=== PATIENT | female | born 1975 | race Caucasian/White ===

== ENCOUNTER 2017-02-01 20:29 | Emergency (ER) | payer OTHER ==
[2017-02-01] MEDS ORDERED: Sodium Chloride 0.9% 10 ML Syringe FLUSH PRN (21:39)
[2017-02-01] MEDS ORDERED: fentaNYL 100 MCG/2 ML SDV IVPUSH ONE (21:40)
[2017-02-01] MEDS ORDERED: Sodium Chloride 0.9% 1,000 ML IV SCH (21:45)
--- NOTE | 2017-02-01 22:02 | EDM.PDOC ---
ED HPI GENERAL MEDICAL PROBLEM - General Chief Complaint: Abdominal Pain Stated Complaint: R ABDOMINAL PAIN Time Seen by Provider: 02/01/17 21:27 Source of Information: Reports: Patient, Old Records, RN Notes Reviewed History Limitations: Reports: No Limitations - History of Present Illness INITIAL COMMENTS - FREE TEXT/NARRATIVE: here with Chief complaint Abdominal pain History of present illness 41-year-old female with onset of loss of appetite generalized feeling of "being sick" yesterday about noon then started developing lower right abdominal pain. However she was able to get to sleep except well had no nausea or vomiting was better in the morning, but over the course of the day developed left-sided abdominal pain. History of gastric bypass 2003 but developed bowel obstruction in August and December 2015, both times requiring surgery, and complicated by intra-abdominal infection requiring open ciliotomy and delayed closure of abdominal wounds with repeat operation. Appetite was okay today but decreased this evening. She's had no nausea, no vomiting had normal bowel movement this morning, usually has a bowel movement twice a day. Does not feel bloated and is passing gas rectally. Has not had her appendix out, did have part of her small bowel resected, did have cholecystectomy. Some radiation of pain into the back. Pain is aggravated by breathing moving walking feels better at rest. 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 Pain Score (Numeric/FACES): 7 - Related Data Allergies Allergy/AdvReac Type Severity Reaction Status Date / Time codeine Allergy Cannot Verified 02/01/17 20:56 Remember methylparaben Allergy Cannot Verified 02/01/17 20:56 Remember nalbuphine Allergy Cannot Verified 02/01/17 20:56 Remember nalbuphine HCl [From Nubain] Allergy Cannot Verified 02/01/17 20:56 Remember oxycodone Allergy Chest Pain Verified 02/01/17 20:56 propylpara Allergy Cannot Uncoded 02/01/17 20:56 Remember Home Meds: Home Meds Cholecalciferol (Vitamin D3) [Vitamin D3] 2,000 units PO DAILY 09/11/15 [History ] Cyanocobalamin (Vitamin B-12) [B-12] 2,500 mcg PO DAILY 09/11/15 [History] Fexofenadine [Radha] 180 mg PO DAILY 09/11/15 [History] Iron,Carbonyl/Ascorbic Acid [Vitron-C Tablet] 1 tab PO DAILY 09/11/15 [History] Multivitamin with Minerals [Multiple Vitamin] 1 tab PO DAILY 09/11/15 [History] Norgestimate-Ethinyl Estradiol [Ortho-Cyclen 28 Tablet] 1 tab PO BEDTIME [History] Acetaminophen [Tylenol Extra Strength] 1,000 mg PO QID PRN 12/29/15 [History] Lactobacillus Acidophilus [Probiotic] 1 each PO DAILY 01/09/16 [History] Amylase/Lipase/Protease [Aurea BATISTA 24,000 Unit] 1 cap PO TID 02/01/17 [History] Diphenoxylate HCl/Atropine [Diphenoxylate-Atrop 2.5-0.025] 1 tab PO DAILY [History] Furosemide [Lasix] 20 mg PO ASDIRECTED PRN 02/01/17 [History] Thiamine HCl [Vitamin B-1] 250 mg PO DAILY 02/01/17 [History] Hydrocodone/Acetaminophen [Hydrocodon-Acetaminophen 5-325] 1 - 2 tab PO Q4H PRN #10 tablet 02/02/17 [Rx] Past Medical History HEENT History: Reports: Allergic Rhinitis Gastrointestinal History: Reports: Bowel Obstruction 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: Other OB/BYN History: abnormal PAP Musculoskeletal History: Reports: Fracture Other Musculoskeletal History: fractured knee cap Neurological History: Reports: Headaches, Chronic, Vertigo Psychiatric History: Reports: Anxiety, Depression Other Psychiatric History: insomnia Endocrine/Metabolic History: Reports: Obesity/BMI 30+ Hematologic History: Reports: B12 Deficiency - Infectious Disease History Infectious Disease History: Reports: Chicken Pox, Shingles - Past Surgical History HEENT Surgical History: Reports: Oral Surgery, Tonsillectomy GI Surgical History: Reports: Bariatric Procedure, Cholecystectomy, Colon, EGD, Esophageal Dilatation, Small Bowel Female Surgical History: Reports: Cervical Cryotherapy Social & Family History - Family History Family Medical History: Noncontributory Cardiac: Reports: Stent - Tobacco Use Smoking Status *Q: Never Smoker Second Hand Smoke Exposure: No - Caffeine Use Caffeine Use: Reports: Coffee, Soda - Alcohol Use Days Per Week of Alcohol Use: 0 - Recreational Drug Use Recreational Drug Use: No ED ROS GENERAL - Review of Systems Review Of Systems: See Below Constitutional: Reports: Malaise, Decreased Appetite. Denies: Fever, Chills, Diaphoresis, Weight Loss, Weight Gain HEENT: Reports: No Symptoms Respiratory: Reports: No Symptoms (but deep breath aggravates the abdominal pain ) Cardiovascular: Reports: No Symptoms GI/Abdominal: Reports: Abdominal Pain, Decreased Appetite, Flatus. Denies: Bloody Stool, Constipation, Diarrhea, Difficulty Swallowing, Distension, Melena , Nausea, Vomiting : Reports: No Symptoms Musculoskeletal: Reports: No Symptoms Skin: Reports: No Symptoms Neurological: Reports: No Symptoms Hematologic/Lymphatic: Reports: No Symptoms Immunologic: Reports: No Symptoms ED EXAM, GI/ABD - Physical Exam Exam: See Below Exam Limited By: No Limitations General Appearance: Alert, Moderate Distress, Other (mild elevation systolic blood pressure and pulse, afebrile) Eyes: Bilateral: Normal Appearance, EOMI Nose: Normal Inspection Throat/Mouth: Normal Inspection, Normal Oropharynx Head: Atraumatic, Normocephalic Neck: Normal Inspection, Supple Respiratory/Chest: No Respiratory Distress, Lungs Clear, Normal Breath Sounds, No Accessory Muscle Use Cardiovascular: Normal Peripheral Pulses, Regular Rate, Rhythm GI/Abdominal Exam: Soft, No Distention, Tender (right lower quadrant without guarding), Abnormal Bowel Sounds (quieter than usual). No: Guarding, Rigid, Rebound Back Exam: Normal Inspection Extremities: Normal Inspection, Normal Capillary Refill Neurological: Alert, Oriented, Normal Cognition, No Motor/Sensory Deficits Psychiatric: Normal Affect, Normal Mood Skin Exam: Warm, Dry, Intact, Normal Color, No Rash Lymphatic: No Adenopathy Course - Vital Signs Last Recorded V/S: Last Vital Signs Temp 36.7 C 02/01/17 20:42 Pulse 101 H 02/01/17 23:04 Resp 16 02/01/17 20:42 BP 113/62 02/01/17 23:04 Pulse Ox 97 02/01/17 23:04 - Orders/Labs/Meds Orders: Active Orders 24 hr Category Date Time Status Peripheral IV Care [RC] . DIRECTED Care 02/01/17 21:39 Active Abdomen 2V AP Flat Upright [CR] Stat Exams 02/01/17 21:57 Taken Abdomen Pelvis w Cont [CT] Stat Exams 02/01/17 22:45 Taken Sodium Chloride 0.9% [Normal Saline] 1,000 ml Med 02/01/17 21:45 Active IV ASDIRECTED Sodium Chloride 0.9% [Saline Flush] Med 02/01/17 21:39 Active 10 ml FLUSH ASDIRECTED PRN Peripheral IV Insertion Adult [OM.PC] Routine Oth 02/01/17 21:39 Ordered Medication Orders Sodium Chloride (Normal Saline) 1,000 mls @ 250 mls/hr IV ASDIRECTED [place] Last Admin: 02/01/17 23:19 Dose: 250 mls/hr Sodium Chloride (Saline Flush) 10 ml FLUSH ASDIRECTED PRN PRN Reason: Keep Vein Open Last Admin: 02/01/17 22:51 Dose: 10 ml Labs: Laboratory Tests 02/01/17 02/01/17 02/01/17 Range/Units 21:49 21:49 21:49 WBC 14.0 H (4.5-11.0) K/uL RBC 4.45 (3.30-5.50) M/uL Hgb 12.4 (12.0-15.0) g/dL Hct 38.7 (36.0-48.0) % MCV 87 (80-98) fL MCH 28 (27-31) pg MCHC 32 (32-36) % Plt Count 342 (150-400) K/uL Sodium 139 L (140-148) mmol/L Potassium 4.0 (3.6-5.2) mmol/L Chloride 105 (100-108) mmol/L Carbon Dioxide 26 (21-32) mmol/L Anion Gap 12.0 (5.0-14.0) mmol/L BUN 10 D (7-18) mg/dL Creatinine 0.8 (0.6-1.0) mg/dL Est Cr Clr Drug Dosing 88.18 mL/min Estimated GFR (MDRD) > 60 (>60) Glucose 100 (74-106) mg/dL Lactic Acid 1.1 (0.4-2.0) mmol/L Calcium 8.8 (8.5-10.1) mg/dL Total Bilirubin 0.3 (0.2-1.0) mg/dL AST 19 D (15-37) U/L ALT 30 D (12-78) U/L Alkaline Phosphatase 46 (46-116) U/L Total Protein 7.1 (6.4-8.2) g/dL Albumin 3.0 L (3.4-5.0) g/dL Globulin 4.1 H (2.3-3.5) g/dL Albumin/Globulin Ratio 0.7 L (1.2-2.2) Lipase 107 (73-393) U/L Meds: Medications Generic Name Dose Route Start Last Admin Trade Name Freq PRN Reason Stop Dose Admin Sodium Chloride 1,000 mls @ 250 mls/hr 02/01/17 21:45 02/01/17 23:19 Normal Saline IV 250 mls/hr ASDIRECTED [place] Administration Sodium Chloride 10 ml 02/01/17 21:39 02/01/17 22:51 Saline Flush FLUSH 10 ml ASDIRECTED PRN Administration Keep Vein Open Discontinued Medications Generic Name Dose Route Start Last Admin Trade Name Freq PRN Reason Stop Dose Admin Diphenhydramine HCl 25 mg 02/01/17 23:18 02/01/17 23:39 Benadryl IVPUSH 02/01/17 23:19 25 mg ONETIME ONE Administration Fentanyl 100 mcg 02/01/17 21:40 02/01/17 22:50 Sublimaze IVPUSH 02/01/17 21:41 100 mcg ONETIME ONE Administration Sodium Chloride 84 mls @ 4.4 mls/sec 02/01/17 22:56 02/01/17 23:10 Normal Saline IV 02/01/17 22:57 4.4 mls/sec ASDIRECTED STA Administration Iopamidol 144 ml 02/01/17 22:55 02/01/17 23:09 Isovue-300 (61%) IV 02/01/17 22:56 150 ml . DIRECTED STA Administration - Re-Assessments/Exams Free Text/Narrative Re-Assessment/Exam: 02/01/17 22:44 41-year-old female with history of gastric bypass, bowel obstruction requiring surgery presenting with over 24 hours of abdominal pain now with decreased appetite. No nausea or vomiting and does not appear to be obstruction. elevated white cell count and right lower quadrant tenderness Discussed with her physician CT scan abdomen pelvis 02/02/17 00:45 CT scan negative for appendicitis Does have delayed transit at the anastomotic site Discussed with patient disposition She elected for discharge home fluid diet only until pain improves Prescribed 10 tablets hydrocodone which she is taking previously Departure - Departure Time of Disposition: 00:45 Disposition: Home, Self-Care 01 Condition: Good Clinical Impression: Intestinal stenosis - Discharge Information Referrals: Indigo Flores MD [Primary Care Provider] - Forms: ED Department Discharge Additional Instructions: delayed intestinal transit or movement of stool through the intestines because of narrowing (stenosis) at the site of the surgery. liquid diet only until your pain has subsided Hydrocodone as needed for pain Contact Dr. Crabtree for follow-up appointment within the week Return to emergency if severe pain, repeated vomiting, fever, abdominal distention or otherwise worsening symptoms - My Orders Last 24 Hours: My Active Orders 02/01/17 21:39 Peripheral IV Care [RC] . DIRECTED Sodium Chloride 0.9% [Saline Flush] 10 ml FLUSH ASDIRECTED PRN Peripheral IV Insertion Adult [OM.PC] Routine 02/01/17 21:45 Sodium Chloride 0.9% [Normal Saline] 1,000 ml IV ASDIRECTED 02/01/17 21:57 Abdomen 2V AP Flat Upright [CR] Stat 02/01/17 22:45 Abdomen Pelvis w Cont [CT] Stat - Assessment/Plan Last 24 Hours: My Active Orders 02/01/17 21:39 Peripheral IV Care [RC] . DIRECTED Sodium Chloride 0.9% [Saline Flush] 10 ml FLUSH ASDIRECTED PRN Peripheral IV Insertion Adult [OM.PC] Routine 02/01/17 21:45 Sodium Chloride 0.9% [Normal Saline] 1,000 ml IV ASDIRECTED 02/01/17 21:57 Abdomen 2V AP Flat Upright [CR] Stat 02/01/17 22:45 Abdomen Pelvis w Cont [CT] Stat
[2017-02-01] MEDS ORDERED: Iopamidol 612 MG/ML 150 ML Bottle IV STA (22:55)
[2017-02-01] MEDS ORDERED: diphenhydrAMINE 50 MG/ML SDV IVPUSH ONE (23:18)
[2017-02-02 00:57] VITALS: BP 107/53
--- NOTE | 2017-02-02 09:00 | CR ---
Abdomen 2V AP Flat Upright HISTORY: abdominal pain, history of bypass, obstruction FINDINGS: There is mild gaseous prominence of small bowel loops and colon. Appearance is nonspecific. Early gas troenteritis or ileus could be considered. No obstruction or free air is identified. No soft tissue m ass, organomegaly, or abnormal calcifications are seen. Bony structures are unremarkable. Surgical cl ips right upper quadrant suggest prior cholecystectomy. There are multiple staple lines left upper qu adrant of the abdomen. IMPRESSION: Mild nonspecific gaseous prominence of small bowel loops and colon. Postcholecystectomy changes. Mult iple staple lines are noted left upper quadrant of the abdomen suggesting prior gastric bypass. Other olmstead nonspecific abdomen.
== END 2017-02-02 00:56 | disposition home or self-care (01) ==
LOC: JP.ED 20:29
DX: K56.609 Unspecified intestinal obstruction, unspecified as to partial versus complete obstruction (principal); E66.9 Obesity, unspecified; Z88.5 Allergy status to narcotic agent; Z88.8 Allergy status to other drugs, medicaments and biological substances; Z79.899 Other long term (current) drug therapy
CPT/HCPCS: 36415; 74020; 74177; 80053; 83605; 83690; 85027; 96361; 96374; 96375; 99285; J1200; J3010; J7030; J7040; J7050

== ENCOUNTER 2017-02-03 07:45 | Inpatient (IN) | payer OTHER ==
[~2017-02-03 07:45] MED LIST: Acetaminophen 500 MG Tab PO ONE; Celecoxib 200 MG Cap PO ONE; Scopolamine 1.5 MG Transdermal Patch TOP SCH
[2017-02-03] MEDS: fentaNYL 25 MCG/HR Transdermal Patch TRDERM SCH (08:15)
[2017-02-03] MEDS ORDERED: Bupivacaine 0.5%/EPINEPHrine 1:200,000 50 ML MDV ONE (08:16)
[2017-02-03] MEDS ORDERED: cefOXitin 2 GM in Sodium Chloride 0.9% 50 ML IV ONE (08:30)
[2017-02-03] MEDS ORDERED: Naloxone 0.4 MG/ML SDV IVPUSH PRN (08:31)
[2017-02-03] MEDS ORDERED: HYDROmorphone/Normal Saline 15 MG/30 ML PCA IV PRN (08:31)
[2017-02-03] MEDS ORDERED: Naloxone 0.4 MG/ML SDV IV PRN (08:37)
[2017-02-03] MEDS: Dextrose 5%-Lactated Ringers 1,000 ML IV SCH ×4 (08:55→22:32)
[2017-02-03] MEDS ORDERED: Succinylcholine 200 MG/10 ML MDV ONE (09:08)
[2017-02-03] MEDS ORDERED: Propofol 200 MG/20 ML SDV ONE (09:08)
[2017-02-03] MEDS ORDERED: Neostigmine Methylsulfate 1 MG/ML 5 ML Syringe ONE (09:08)
[2017-02-03] MEDS ORDERED: Dexamethasone 4 MG/ML SDV ONE (09:08)
[2017-02-03] MEDS ORDERED: Ondansetron 4 MG/2 ML SDV ONE (09:08)
[2017-02-03] MEDS ORDERED: Rocuronium 50 MG/5 ML Vial ONE (09:08)
[2017-02-03] MEDS ORDERED: Glycopyrrolate 0.2 MG/ML 5 ML MDV ONE (09:08)
[2017-02-03] MEDS ORDERED: diphenhydrAMINE 50 MG/ML SDV ONE (11:12)
[2017-02-03] MEDS ORDERED: Meropenem 500 MG SDV ONE (11:13)
[2017-02-03] MEDS ORDERED: Ondansetron 4 MG/2 ML SDV IVPUSH ONE (13:00)
[2017-02-03] MEDS ORDERED: Ondansetron 4 MG/2 ML SDV IVPUSH PRN (13:55)
[2017-02-03] MEDS: FENTANYL PATCH CHECK TOP SCH ×2 (13:56→20:06)
[2017-02-03] MEDS: SCOPOLAMINE PATCH CHECK TOP SCH (13:57)
[2017-02-03] MEDS ORDERED: Metoclopramide 10 MG/2 ML SDV IVPUSH PRN (15:00)
[2017-02-03] MEDS ORDERED: Labetalol 20 MG/4 ML Syringe IVPUSH PRN (15:00)
[2017-02-03] MEDS ORDERED: hydrOXYzine HCl 100 MG/2 ML SDV IM PRN (15:00)
[2017-02-03] MEDS ORDERED: diphenhydrAMINE 50 MG/ML SDV IVPUSH PRN (15:00)
[2017-02-03] MEDS ORDERED: Pantoprazole 40 MG Vial IVPUSH SCH (16:00)
[2017-02-03] MEDS: Acetaminophen Soln 650 MG/20.3 ML UD Cup PO SCH ×2 (16:06→21:31)
[2017-02-03] MEDS: MVI, Adult with Vitamin K 10 ML, Thiamine 200 MG, Chromium/Copper/Mang/Selen/Zn 1 ML in... IV SCH ×4 (16:15)
[2017-02-03] MEDS: cefOXitin 2 GM in Sodium Chloride 0.9% 50 ML IV SCH ×2 (16:15→22:32)
[2017-02-03] MEDS: Heparin Sodium 5,000 Units/ML Vial SUBCUT SCH (17:22)
[2017-02-04] MEDS ORDERED: Iohexol 647 MG/ML 50 ML SDV PO STA (03:49)
[2017-02-04] MEDS: Dextrose 5%-Lactated Ringers 1,000 ML IV SCH (04:43)
[2017-02-04] MEDS: Acetaminophen Soln 650 MG/20.3 ML UD Cup PO SCH (04:46)
[2017-02-04] MEDS: cefOXitin 2 GM in Sodium Chloride 0.9% 50 ML IV SCH (04:49)
[2017-02-04] MEDS: Heparin Sodium 5,000 Units/ML Vial SUBCUT SCH ×2 (05:00→17:43)
[2017-02-04] MEDS: Celecoxib 200 MG Cap PO SCH (08:48)
[2017-02-04] MEDS: FENTANYL PATCH CHECK TOP SCH (08:48)
[2017-02-04] MEDS: SCOPOLAMINE PATCH CHECK TOP SCH (08:49)
--- NOTE | 2017-02-04 09:05 | CR ---
UGI wo KUB HISTORY: eval R -Y GBP FINDINGS: Limited upper GI series was obtained without fluoroscopy. Water-soluble contrast was admini stered orally. Immediate along with 15, 30, and 75 minute delayed images were obtained. Small gastric pouch is demonstrated. Contrast passes readily through the gastrojejunostomy into loops of jejunum. No obstruction is identified at the gastrojejunostomy. There is no contrast extravasation. On the delayed images the Shaji limb is dilated suggesting obstruction at the jejunojejunostomy. Recom mend clinical correlation. Midline skin luis are noted. IMPRESSION: Possible obstruction at the distal jejunojejunostomy.
[2017-02-04] MEDS: Acetaminophen Soln 650 MG/20.3 ML UD Cup PO PRN ×2 (09:56→18:26)
[2017-02-04] MEDS ORDERED: Nystatin Susp 100,000 Unit/ML 5 ML UD Cup PO SCH (10:00)
[2017-02-04] MEDS: MVI, Adult with Vitamin K 10 ML, Thiamine 200 MG, Chromium/Copper/Mang/Selen/Zn 1 ML in... IV SCH ×4 (11:36)
--- NOTE | 2017-02-04 11:58 | PN ---
DATE OF SERVICE: 02/04/2017 SUBJECTIVE: Lety is a 41-year-old female who is postop day #1. She states her pain is controlled. She has been up ambulating. Denies any questions or concerns. OBJECTIVE: GENERAL: Lety Toscano is a 41-year-old female. VITAL SIGNS: TPR 98.5, 76, 16. Blood pressure 103/52. HEENT: Negative. NECK: Supple. HEART: Regular rate and rhythm. LUNGS: Clear. ABDOMEN: Dressing dry and intact. Abdominal binder is on. EXTREMITIES: Without peripheral edema. SCDs are on. ASSESSMENT: Laparotomy for partial small bowel obstruction and small bowel resection. Date of surgery, 02/04/2017. PLAN: 1. Step III gastric bypass diet. 2. Decrease IV to 100 mL/h. 3. 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 4. Discontinue continuous pulse ox. 5. Ciales 5/325 mg 1 to 2 p.r.n. pain. 6. Discontinue scheduled Tylenol. 7. Good pulmonary toilet encouraged. 8. We will evaluate p.r.n. or in a.m. Kayleen Lott PA-C /[id number]
[2017-02-04] MEDS: Acetaminophen/HYDROcodone 325-5 MG Tab PO PRN ×2 (14:18→21:56)
[2017-02-04] MEDS ORDERED: Ondansetron 4 MG Tab.DIS PO PRN (14:31)
[2017-02-04] MEDS ORDERED: Cyclobenzaprine 10 MG Tab PO PRN (17:31)
[2017-02-04] MEDS ORDERED: Magnesium Hydroxide 400 MG/5 ML Susp 30 ML Cup PO ONE (18:45)
[2017-02-04] MEDS ORDERED: Bisacodyl 5 MG Tab PO ONE ×2 (19:45)
[2017-02-05] MEDS: Acetaminophen/HYDROcodone 325-5 MG Tab PO PRN ×2 (01:46→22:55)
[2017-02-05] MEDS: FENTANYL PATCH CHECK TOP SCH ×3 (02:50→21:30)
[2017-02-05] MEDS: Bisacodyl 5 MG Tab PO SCH ×3 (03:38→21:30)
[2017-02-05] MEDS: Heparin Sodium 5,000 Units/ML Vial SUBCUT SCH ×2 (05:54→18:43)
[2017-02-05] MEDS: Acetaminophen Soln 650 MG/20.3 ML UD Cup PO PRN ×3 (07:24→18:43)
[2017-02-05] MEDS: Celecoxib 200 MG Cap PO SCH (07:26)
[2017-02-05] MEDS ORDERED: Cyanocobalamin (Vitamin B12) 1,000 MCG/ML SDV IM ONE (09:00)
[2017-02-05] MEDS: SCOPOLAMINE PATCH CHECK TOP SCH (09:33)
--- NOTE | 2017-02-05 17:24 | PN ---
DATE OF SERVICE: 02/05/2017 The patient has been afebrile with stable vital signs. She is still fairly uncomfortable, but has not moved her bowels as of yet. Moving a little bit of gas. She looks too uncomfortable at this point to discharge home. We will give her MiraLAX 119 g today along with the scheduled Dulcolax tablets 10 mg q.8 hours and she will likely be ready for discharge home tomorrow. Yohan Crabtree MD /[id number]
[2017-02-06] MEDS: Bisacodyl 5 MG Tab PO SCH (03:31)
[2017-02-06] MEDS: Acetaminophen Soln 650 MG/20.3 ML UD Cup PO PRN (06:10)
[2017-02-06] MEDS: Heparin Sodium 5,000 Units/ML Vial SUBCUT SCH (06:11)
[2017-02-06] MEDS: Celecoxib 200 MG Cap PO SCH (08:25)
[2017-02-06] MEDS: fentaNYL 25 MCG/HR Transdermal Patch TRDERM SCH (08:25)
[2017-02-06] MEDS: FENTANYL PATCH CHECK TOP SCH (08:42)
--- NOTE | 2017-02-06 08:58 | DISCH ---
ADMISSION DIAGNOSES: Small bowel obstruction, status post Shaji-en-Y gastric bypass surgery, unspecified surgical malabsorption, B12 deficiency, and diarrhea due to malabsorption. 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 Date of surgery 02/03/2017. HISTORY: Lety Toscano is a 41-year-old female who presented to the emergency room with abdominal pain on 02/01/2017. The abdominal pain has been pretty chronic along with chronic diarrhea. After preoperative evaluation and discussion of possible risks and possible complications, she wished to proceed with surgical procedure. HOSPITAL COURSE: Surgery was on 02/03/2017. She had no operative complications. On postop day #1, she was changed to oral pain medication and started on a bariatric diet. On postop day #2, she was given some bowel stimulation, and she did have a bowel movement. On postop day #3, she was ready to be discharged to home. Activity good, vital signs stable, and pain was well managed. PHYSICAL EXAMINATION: GENERAL: Lety Toscano is a 41-year-old female. VITAL SIGNS: Height is 5 feet 6 inches. Weight is 208 pounds. TPR is 99.5, 104, 16, and blood pressure 117/61. HEENT: Negative. NECK: Supple. HEART: Regular rate and rhythm. LUNGS: Clear. ABDOMEN: [place] intact. She has a midline JAIMIE drain, draining a light red drainage, scant amounts. Abdominal binder has been on. EXTREMITIES: Without peripheral edema. DISPOSITION: Discharged to home. CONDITION: The patient is stable and improving. FOLLOWUP APPOINTMENT: With Kayleen Lott PA-C, on 02/14/2017 at 10:15 a.m. DISCHARGE MEDICATIONS: Home medication; [place] 5/325 mg 1 to 2 every 4 hours p.r.n. pain, #40; Celebrex 200 mg p.o. daily, #14; fentanyl patch 25 mcg was replaced on day of discharge, 02/06/2017, she can take it off on 02/10/2017; Zofran ODT 4 mg q.4 hours p.r.n. pain, #30. To resume home medications of vitamin D3 5000 international units twice daily, vitamin B12 5000 mcg oral daily, Radha 180 mg oral daily, Vitron-C one tablet twice daily, lactobacillus one each daily, magnesium 400 mg oral daily, melatonin 10 mg oral at bedtime, multivitamin one tablet daily, Ortho-Cyclen one tablet at bedtime, and thiamine 250 mg oral daily. Discontinue taking the Creon, the Lomotil, and the Lasix unless diarrhea returns. DISCHARGE DIET: Step-4 gastric bypass diet. Drink 8 to 10 glasses of water a day. ACTIVITY: After discharge; no lifting greater than 10 pounds for 6 weeks[address]riving, do not drive while on pain medication. Shower/bathing, may shower. DISCHARGE INSTRUCTIONS: Notify provider if any fever, increased pain, swelling, redness, drainage, nausea, or vomiting. Wound incision care; keep site clean and dry. Wear abdominal binder for 6 weeks and then as tolerated. Use incentive spirometer 10 times every hour while awake and to strip, empty, measure, and record JAIMIE drain 4 times a day. sample preparation supervisor Senna Plus stool softener and stimulant, take 2 at bedtime as needed for constipation.
[2017-02-06] MEDS: Acetaminophen/HYDROcodone 325-5 MG Tab PO PRN (10:43)
[2017-02-06 11:07] VITALS: BP 131/79
--- NOTE | 2017-02-09 14:27 | OR ---
DATE OF PROCEDURE: 02/03/2017 PREOPERATIVE DIAGNOSIS: Partial small bowel obstruction, near previous small bowel anastomosis felt likely to be related to chronic intussusception. POSTOPERATIVE DIAGNOSES: 1. Partial small bowel obstruction and previous small bowel anastomosis secondary to chronic intussusception. 2. 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 3. Extensive intraabdominal adhesions. OPERATIVE PROCEDURES: Exploratory laparotomy with: 1. Small bowel resection (23054). 2. Division of Shaji limb as it entered the jejunojejunostomy at the point of stricturing with secondary separate enteroenterostomy to restore Shaji-en-Y anatomy (09827). 3. Placement of Interceed mesh to limit recurrent adhesion formation by displacing pelvic and abdominal bazzi from overlying viscera ([id number]). ANESTHESIA: General. GENERAL COUNSEL: Kayleen Lott PA-C and MARY Olivares. INDICATION FOR PROCEDURE: Presented with chronic abdominal pain, particularly in the postprandial period as a recent CT scan showed partial obstruction pattern with her being quite a bit in the way of small bowel distention primarily with Shaji limb above her previous anastomosis. Given the degree of distention, plan will be to proceed with an open laparotomy and resection of bowel and/or lysis of adhesions as indicated. Potential risks including bleeding and infection leaks from various GI tract closures, possibility of recurrent bowel obstruction over time were reviewed, and the patient wishes to proceed. DETAILS OF PROCEDURE: The patient was taken to the operating room and placed in a supine position. After general endotracheal anesthesia was induced, a Khan catheter was inserted and the abdomen was prepped and draped. A midline incision from the area roughly handsbreadths below the umbilicus down to the level of the umbilicus was made and carried down through the skin and subcutaneous tissue, and the intraperitoneal cavity. There was quite a bit in the way of adhesions between the small bowel, transverse colon, and overlying abdominal wall and omentum. These were taken down and at that point on general exploration revealed a markedly dilated to previous anastomosis where there had been a jejunojejunostomy within the Shaji limb. This appeared to likely be related to the intussusception. The area of proximal to this was quite reddened and edematous. This area appeared to be best treated by means of resection. The patient had a 2nd area of stricturing where the small bowel at the level of the Shaji limb was entered in a formal Shaji-en-Y jejunojejunostomy. This was chronically angulated and somewhat narrowed and likely partially obstructed there as well. Apart from that, no additional specific abnormalities were noted. At this point, the area of the intussusception was divided proximally and distally with REGAN ghotra loads, the bowel was then aligned adjacent to it. At the beginning at the divided ends and single internal firing of the REGAN ghotra load was then accomplished and the common opening closed off with a purple load. The angles anastomosis and mesenteric defect were then approximated with some 3-0 Vicryl stitch. At that point, the Shaji limb was detached to the point where it entered the Shaji-en-Y jejunojejunostomy. The patient has had quite a bit in the way of chronic diarrhea or loose stools related to relatively short common limb. This was measured at 200 cm presently and the wound was such that the common limb now would be 450 cm proximal to the ileocecal valve. This was countered back and the end of the Shaji limb was then implanted with small bowel at that level with a [id number] enteroenterostomy once again with internal firing of the ghotra loads and common opening closed transversely with the same stapler. Angle was anastomosed with mesenteric defect with likewise approximated with some 3-0 Vicryl stitch. The anastomoses as well as mesenteric defects were then reinforced with some fibrin sealant. In an attempt to limit recurrent adhesion formation, Interceed mesh was placed from the beginning of the pelvis and extending upward underneath the abdominal wall incisional hernia to displace the small bowel and away from those surfaces to limit recurrent adhesion formation. At that point, the abdomen had been irrigated with antibiotic- containing saline solution, midline fascia was approximated with #2 Vicryl stitch, and the subcutaneous tissue closed with 2 layers of 3-0 and 4-0 Vicryl stitch deep and then luis for the skin. Dressing was applied. The patient was taken to the recovery room in satisfactory condition. Physician assistant professor of chemistry, Kayleen Lott played an essential role in assisting in this case, helping to position the patient, retract structures as needed, as well as suturing and cutting sutures when indicated. Her presence improved patient's safety and decreased operative time. Yohan Crabtree MD /[id number]
== END 2017-02-06 12:45 | disposition home or self-care (01) | DRG 330 ==
LOC: JP.SDSSCHI 07:45 → JP.SDS 07:45 → EDSTATUS 09:30 → JP.2SS 12:00
PROVIDERS: ADMIT Surgery; ATTEND Surgery
PROC: 0DB80ZZ Excision of Small Intestine, Open Approach (ICD-10-PCS; principal; 2017-02-03)
PROC: 0DS80ZZ Reposition Small Intestine, Open Approach (ICD-10-PCS; 2017-02-03)
PROC: 3E0M05Z Introduction of Adhesion Barrier into Peritoneal Cavity, Open Approach (ICD-10-PCS; 2017-02-03)
DX: K56.1 Intussusception (principal); K91.2 Postsurgical malabsorption, not elsewhere classified; K56.51 Intestinal adhesions [bands], with partial obstruction; E53.8 Deficiency of other specified B group vitamins; E55.9 Vitamin D deficiency, unspecified; Z98.84 Bariatric surgery status; Z98.0 Intestinal bypass and anastomosis status; Y83.2 Surgical operation with anastomosis, bypass or graft as the cause of abnormal reaction of the patient, or of later complication, without mention of misadventure at the time of the procedure; R19.7 Diarrhea, unspecified; K59.00 Constipation, unspecified
CPT/HCPCS: 74240; 74240-26; 88307; 94762; A9270-GY; C9113; J0330; J0694; J1100; J1170; J1200; J1644; J2185; J2405; J2704; J2710; J3010; J3411; J3420; J7042; J7050; Q9967